=== PATIENT | female | born 1980 | race Caucasian/White ===

== ENCOUNTER 2020-02-08 13:29 | Observation (INO) | payer OTHER, SELFPAY ==
--- NOTE | ~2020-02-08 | US_ITS ---
EXAMINATION: US OB follow up EXAM DATE: 02/08/2020 14:12 INDICATION: Decreased movement. 2nd trimester. TECHNIQUE: Pelvic obstetrical transabdominal sonogram was performed by a technologist. There are mu ltiple grayscale and Doppler images available for interpretation. There are no earlier studies of th is gestation for comparison. FINDINGS: There is a 2nd trimester intrauterine gestation identified, without heart tones. Plac enta is posteriorly located. No retroplacental hemorrhage. IMPRESSION: demise. Reviewed, dictated and finalized at location A. IMPRESSION: demise.
[2020-02-08 13:20] VITALS: BP 160/79; PULSE 107; RESP 17; TEMP 36.7; O2SAT 100
--- NOTE | 2020-02-08 15:03 | PM.IMHP ---
H&P: HPI History of Present Illness Chief complaint: decreased movement Narrative: Greer Castellano is a 39 year old female multiparous female at 19 weeks gestation who presents with decreased movement. The patient has a history of 2 second-trimester demise. Patient stated that she does new that the baby had passed. She denies any nausea, vomiting, fever, chills. She denies any shortness of breath or chest pain. She denies any contractions, vaginal bleeding, loss of fluid. Review of Systems Constitutional: Constitutional: Reports no additional constitutional complaints, Denies fatigue, Denies headache(s), Denies lethargy and Denies weakness Eyes: Eyes: Reports no additional eye complaints, Denies blurry vision and Denies photophobia ENT: Reports as per HPI, Denies headache(s) and Denies neck pain Cardiovascular: Cardiovascular: Denies chest pain, Denies diaphoresis, Denies leg edema, Denies palpitations and Denies dyspnea Respiratory: Respiratory: Denies hemoptysis, Denies dyspnea and Denies wheezing Gastrointestinal: Gastrointestinal: Denies abdominal pain, Denies melena, Denies bloating, Denies hematochezia, Denies nausea and Denies vomiting Genitourinary: Genitourinary: Reports no additional female genitourinary complaints Musculoskeletal: Musculoskeletal: Denies joint swelling, Denies neck pain, Denies numbness and Denies stiffness Neurologic: Denies Abnormal speech present, Denies confusion, Denies headache(s), Denies numbness and Denies weakness Psychiatric: Psychiatric: Denies anxiety, Denies confusion, Denies depression, Denies homicidal ideation and Denies suicidal ideation Endocrine: Endocrine: Denies fatigue and Denies palpitations Allergic/Immunologic: Allergic/Immunologic: Denies wheezing [facility] Social History Social History Gender identity (if verbalized by the patient): Female Meds Home Medications and Allergies Allergies Allergy/AdvReac Type Severity Reaction Status Date / Time No Known Allergies Allergy Unverified 08/24/17 13:33 Vital Signs Vital Signs - 24 hr 02/08/20 13:20 Temperature 98.1 F Pulse Rate 107 H Respiratory Rate 17 Blood Pressure 160/79 H Pulse Oximetry 100 Exam Const: General: healthy appearing, comfortable and no acute distress; No confusion Orientation/consciousness: No confusion Eyes: Direct Ophthalmoscopy: No photophobia Resp: Auscultation: clear to auscultation bilaterally, no rales, no rhonchi and no wheezes Cardio: Rate: regular rate Heart sounds: no click, no murmurs and no rubs GI: Inspection: non-distended GI Palp: No abdominal tenderness Auscultation: normal bowel sounds Neuro: General: No confusion Speech: No Abnormal speech present Extrem: General: normal to inspection, no pedal edema and no calf tenderness Assessment and Plan Assessment and plan (1) demise before 20 weeks with retention of fetus: Code(s): O02.1 - Missed Status: Acute Assessment and Plan: This patient is a 39-year-old multiparous female at 19 weeks gestation with a demise. Patient's previous demise was delivered by a classical . The patient desires sterilization. She wants to be delivered again by delivery and have tubal ligation. We agreed to proceed with repeat and bilateral tubal ligation. She understands the risks, benefits, and alternatives. She has completed the informed consent process is ready to proceed. The surgery will be performed in 3 days.
--- NOTE | 2020-02-08 15:53 | PC.NURSE ---
Pt arrived per wheelchair from the ER at 1329. Pt was transferred to OB d/t c/o not feeling any movement, pt denies any bleeding or cramping. Pt states she had a demise last summer and one the year prior to that and this feels the same to her. I attempted to dopper heart tones for several minutes without success. Bryant AMADOR called at 1337 and was informed of why pt came in and that she is needed to come in and perform US. Bryant AMADOR arrived at 1345, she performed a bedside US and was unable to determine if there was a heart rate. Order received to have US tech come to perform bedside US. 1400 bedside US was performed and pt was informed by Bryant AMADOR that there is not a heart beat. 1402 Dr. Rg called and informed of pt's loss and that she is requesting to speak with him, he stated he is on his way in. 1406 bp 151/82 HR 100 temp 97.8. 1425- at bedside discussing with pt and her the plan of care. Pt states she wants to have a section since she had to have one last time and she wants a tubal ligation. 1445- remains at bedside discussing plan. Due to childcare issues today and inability to know if tubal ligation could be performed with pt's insurance, decision made by and pt for her to go home now and he will call her tomorrow with time and date of section. 1451-Pt discharged with SO and instructed to come in if she has any vaginal bleeding or cramping or develops a fever.
== END 2020-02-08 14:51 | disposition home or self-care (01) ==
LOC: ANHED 14:55 → ANHLDR 02-09 09:49
PROVIDERS: Admitting Provider Obstetrics & Gynecology; Visit Provider Obstetrics & Gynecology
DX: O02.1 Missed abortion (principal)
CPT/HCPCS: 76816; G0378; G0379

== ENCOUNTER 2020-02-11 07:15 | Inpatient (IN) | payer OTHER, SELFPAY ==
[2020-02-11] VITALS (39 sets, daily range): BP systolic 86–123; BP diastolic 27–89; PULSE 59–100; RESP 16–20; TEMP 36.1–36.7; O2SAT 96–100; BMI 30.9
--- NOTE | 2020-02-11 08:00 | P.PNAN_ITS ---
Anes - Initial Pre Proc Eval Procedure: Operation Date: 02/11/20 09:00 Proposed Procedures p Repeat Section, Tubal Ligation With Cautery - Anna Rg MD Date/Time: 02/11/20 08:00 Surgeon: Anna Rg MD Pre Op Diagnosis: C/Section Patient Data Age: 39 Gender: F Height: Weight: Last Vital Signs Pulse 85 02/11/20 07:40 BP 123/85 02/11/20 07:40 Allergies Allergy/AdvReac Type Severity Reaction Status Date / Time No Known Allergies Allergy Unverified 08/24/17 13:33 Patient hx anesthesia problems: none Family hx anesthesia problems: none [facility] Social History Social History Gender identity (if verbalized by the patient): Female Anes - Eval Final PreProcedure Day of Procedure 02/11/20 08:00 Patient weight: overweight Heart: regular rate and rhythm Lungs: clear to auscultation and normal air movement Airway: Mallampati scale class II Neurological: alert and oriented Last oral intake: >/= 8 hours ASA classification: II Emergent: no Anesthetic plan: proceed Anesthesia type and monitoring: regional spinal Informed Consent: The patient's anesthetic plan and its attendant risks and benefits were discussed with the patient/family/POA. Questions were solicited and answers provided to the satisfaction of the patient/family/POA.
[2020-02-11 08:23] LABS: Basophils Absolute Auto 0.1 K/mm3 (0.0-0.1); Basophils Percent Auto 0.5 % (0.2-1.2); Eosinophils Absolute Auto 0.3 K/mm3 (0-0.3); Eosinophils Percent Auto 2.5 % (0-4.4); Hematocrit 39.7 % (37.0-47.0); Hemoglobin 13.8 g/dL (12.0-15.0); Immature Granulocyte Absolute 0.31 K/mm3 (0.00-0.031); Immature Granulocyte Percent A 2.5 % (0-0.5); Lymphocytes Absolute Auto 1.78 K/mm3 (0.9-3.2); Lymphocytes Percent Auto 14.2 % (18.3-44.2); Mean Corpuscular HGB Conc 34.8 g/dl (32-36); Mean Corpuscular Hemoglobin 30.7 pg (26-34); Mean Corpuscular Volume 88.2 fl (80-100); Monocytes Percent Auto 7.8 % (2.6-8.5); Neutrophils Absolute Auto 9.1 K/mm3 (1.3-6.7); Neutrophils Percent Auto 72.5 % (45.5-73.1); Platelet Count Result 206 k/mm3 (150-375); Red Cell Distribution Width 14.4 % (11.5-14.5); White Blood Count 12.5 K/mm3 (4.5-10.0)
[2020-02-11] MEDS: LACTATED RINGERS 1,000 ML 999 ML IV CONT (08:32)
--- NOTE | 2020-02-11 08:44 | LDADM ---
This patient, Greer Castellano, was admitted to Labor/Delivery/Recovery 119 on 02/11/20 at 07:15. Plans for labor, pain management and were discussed with patient. Patient/family oriented to hospital policies and general routines including ID bracelet, bed and alarms, visiting hours, pain management, procedures, bathroom and other care routines, personal items, smoking policy, room service/diet and guest tray routines, infant security routines, and visiting hours. Patient/Family are encouraged to report perceived risks to care and to ask questions if they do not understand what they are told or what they should do. See OBIX for further documentation.
--- NOTE | 2020-02-11 09:07 | PM.IMHP ---
H&P: HPI History of Present Illness Chief complaint: C/Section Narrative: Greer Castellano is a 39 year old female She is multiparous and has a demise currently at 19 weeks gestation. This is her 3rd consecutive demise at 19-21 weeks. Previously she had a delivery at her request. She has unwanted fertility at this time also. We have agreed to proceed with repeat delivery and bilateral tubal ligation. She denies any problems. She has no complaints. She denies any chest pain, shortness of breath, nausea vomiting, fever, chills. She denies any contractions or vaginal bleeding. Review of Systems Constitutional: Constitutional: Reports no additional constitutional complaints, Denies fatigue, Denies headache(s), Denies lethargy and Denies weakness Eyes: Eyes: Reports no additional eye complaints, Denies blurry vision and Denies photophobia ENT: Reports as per HPI, Denies headache(s) and Denies neck pain Cardiovascular: Cardiovascular: Denies chest pain, Denies diaphoresis, Denies leg edema, Denies palpitations and Denies dyspnea Respiratory: Respiratory: Denies hemoptysis, Denies dyspnea and Denies wheezing Gastrointestinal: Gastrointestinal: Denies abdominal pain, Denies melena, Denies bloating, Denies hematochezia, Denies nausea and Denies vomiting Genitourinary: Genitourinary: Reports no additional female genitourinary complaints Musculoskeletal: Musculoskeletal: Denies joint swelling, Denies neck pain, Denies numbness and Denies stiffness Neurologic: Denies Abnormal speech present, Denies confusion, Denies headache(s), Denies numbness and Denies weakness Psychiatric: Psychiatric: Denies anxiety, Denies confusion, Denies depression, Denies homicidal ideation and Denies suicidal ideation Endocrine: Endocrine: Denies fatigue and Denies palpitations Allergic/Immunologic: Allergic/Immunologic: Denies wheezing [facility] Family History Family History (Updated 02/11/20 @ 08:48 by Lakisha Montano RN) Mother Diabetes mellitus Hypertension Grandparent Diabetes mellitus Father Diabetes mellitus Social History Social History (Updated 02/11/20 @ 08:50 by Lakisha Montano RN) Smoking status: Former smoker Tobacco type: cigarettes Second hand tobacco smoke exposure: Yes Alcohol intake: never Substance use: never Living arrangements: with family Gender identity (if verbalized by the patient): Female Sexual Orientation (if Verbalized by the Patient): Straight or Heterosexual Spiritual care concerns: No Agree to blood products: Yes Meds Home Medications and Allergies Allergies Allergy/AdvReac Type Severity Reaction Status Date / Time No Known Allergies Allergy Unverified 08/24/17 13:33 Vital Signs Vital Signs - 24 hr 02/11/20 07:40 Pulse Rate 85 Blood Pressure 123/85 Exam Const: General: healthy appearing, comfortable and no acute distress; No confusion Orientation/consciousness: No confusion Eyes: Direct Ophthalmoscopy: No photophobia Resp: Auscultation: clear to auscultation bilaterally, no rales, no rhonchi and no wheezes Cardio: Rate: regular rate Heart sounds: no click, no murmurs and no rubs GI: Inspection: non-distended GI Palp: No abdominal tenderness Auscultation: normal bowel sounds Neuro: General: No confusion Speech: No Abnormal speech present Extrem: General: normal to inspection, no pedal edema and no calf tenderness H&P: Results Labs Labs: Short CBC 02/11/20 Range/Units 08:16 WBC 12.5 H (4.5-10.0) K/mm3 Hgb 13.8 (12.0-15.0) g/dL Hct 39.7 (37.0-47.0) % Plt Count 206 (150-375) k/mm3 Assessment and Plan Assessment and plan (1) demise before 20 weeks with retention of fetus: Code(s): O02.1 - Missed Status: Acute (2) Unwanted fertility: Code(s): Z30.09 - Encounter for other general counseling and advice on contraception Status: Acute Assessmen
[2020-02-11 09:15] LABS: HIV 1/2 Ab P24 Ag Result Negative (Negative)
[2020-02-11 10:09] LABS: Hepatitis B Surface Antigen Negative (Negative)
[2020-02-11 10:24] LABS: Rapid Plasma Reagin Non-Reactive (NonReactive)
--- NOTE | 2020-02-11 10:57 | P.OP_ITS ---
Procedure Note - Detailed Date of procedure: 02/11/20 Pre-op diagnosis: C/Section Unwanted fertility, Detal Demise, Previous Classical Uterine Incision Post-op diagnosis: same Procedure performed: Repeat low-transverse delivery, tubal ligation Description of procedure: The patient was taken the operating room. She was prepped and draped in the dorsal supine position with leftward tilt after emelina ction of spinal anesthetic. When anesthesia was found to be adequate a low- transverse skin incision was made and carried down to the level the fascia with the knife. The fascial incision was made at the midline with a scalpel. The fascial incision was extended laterally with Murphy scissors. The fascia was tented upward superior and inferior with Bhavesh clamps. The rectus muscles were dissected off bluntly. The rectus muscles at the midline. The preperitoneal fat was dissected bluntly at the superior aspect of the separate the rectus muscles. The peritoneal cavity was entered bluntly in the same area. The peritoneal incision was extended superior and inferior with good position of bladder. Bladder blade was inserted. A classical incision was made on the uterus with the scalpel. It was carried down the level of the amniotic cavity with a knife. The amniotic cavity bluntly. The uterine incision was made laterally with blunt traction. The infant was delivered. The cord was clamped and cut. The infant was handed off to waiting pediatric staff. Cord bloods were obtained. The placenta was removed manually. The uterus was exteriorized. Uterus cleared of all clots and debris. Uterus closed in 0 Vicryl in a running locked fashion. This suture encompassed the Myometrium and endometrium. An imbricating layer of 0 Vicryl was also placed on the to bolster the closure encompasing some myometrium and the serosa. Fallopian tube was grasped in the ampullary region with a Soraya. It was raised away from the accompanying vein. A window was created in the broad ligament in this area of the tube. 0 Vicryl was used to ligate the proximal distal ends of the skeletonize region of the tube. The segment of the tube was resected with scissors. The cut surfaces were cauterized. On the contralateral side the procedure was performed identically. The uterus was returned to the abdomen. The gutters were cleared of all clots and debris. The fascia was closed 0 Vicryl in a running fashion. Subcutaneous tissue was irrigated and bleeding areas were cauterized. The skin was closed with subcuticular absorbable phil. The incision was covered with derma parry. The patient tolerated the procedure well. She was taken recovery room stable condition. Sponge, lap, needle counts were correct x2. Anesthesia: spinal Surgeon: Anna Rg MD Estimated blood loss (mL): 210 Drains: No Packing: No Pathology: none sent Complications: No immediate complications Condition: stable Disposition: floor Findings: Normal maternal anatomy. 19 wk size , dark amniotic fuid, demise.
[2020-02-11] MEDS: MEPERIDINE HCL INJ 50 MG/ML AMPUL 12 MG IV PUSH (13:00)
[2020-02-11] MEDS: ONDANSETRON INJ 4 MG/2 ML VIAL IV PUSH ×2 (13:00→19:56)
[2020-02-11] MEDS: KETOROLAC 30 MG/ML VIAL (*BKC) IV PUSH ×2 (13:40→19:56)
--- NOTE | 2020-02-11 14:24 | SUR.PHASEI ---
PATIENT RECOVERED IN 119 AND ASSESSMENT STABLE THROUGHOUT. BONDED WITH BABY AND PICTURES DONE. MOVED TO RM 111
[2020-02-11] MEDS: LORATADINE 10 MG TABLET PO (16:15)
[2020-02-11] MEDS: DEXTROSE 5%/0.45% SOD CHL 1,000 ML 125 ML IV CONT (16:29)
[2020-02-11 19:07] LABS: Glucose Point of Care 92 (65-105)
[2020-02-12] VITALS (11 sets, daily range): BP systolic 111–151; BP diastolic 50–95; PULSE 72–99; RESP 16–18; TEMP 36.3–37.3
[2020-02-12] MEDS: KCL 20 MEQ/D5/0.45% SOD CHL 1,000 ML 125 ML IV CONT (00:32)
--- NOTE | 2020-02-12 08:06 | PM.OBPNVD ---
OB - PN: Subj Subjective Date/time seen: 02/12/20 08:06 Patient comments: no complaints, pain well controlled, tolerating diet and flatus present OB - PN: Obj Data Labs CBC & Chem 7: 02/11/20 08:16 Labs: Laboratory Results - last 24 hr 02/11/20 02/11/20 02/11/20 08:16 08:16 08:16 WBC 12.5 H RBC 4.50 Hgb 13.8 Hct 39.7 MCV 88.2 MCH 30.7 MCHC 34.8 RDW 14.4 Plt Count 206 MPV 11.0 H Immature Gran % (Auto) 2.5 H Neut % (Auto) 72.5 Lymph % (Auto) 14.2 L Posey % (Auto) 7.8 Eos % (Auto) 2.5 Baso % (Auto) 0.5 Lymph # (Auto) 1.78 Posey # (Auto) 1.0 H Eos # (Auto) 0.3 Baso # (Auto) 0.1 Abs Immat Gran (auto) 0.31 H Absolute Neuts (auto) 9.1 H Absolute Nucleated RBC 0.0 Nucleated RBC % 0.0 POC Capillary Glucose RPR Non-reactive Hep Bs Antigen HIV 1&2 Ab/P24 Ag 4thGn Rubella IgG Antibody 48.0 Blood Type Antibody Screen 02/11/20 02/11/20 02/11/20 08:16 08:16 08:16 WBC RBC Hgb Hct MCV MCH MCHC RDW Plt Count MPV Immature Gran % (Auto) Neut % (Auto) Lymph % (Auto) Posey % (Auto) Eos % (Auto) Baso % (Auto) Lymph # (Auto) Posey # (Auto) Eos # (Auto) Baso # (Auto) Abs Immat Gran (auto) Absolute Neuts (auto) Absolute Nucleated RBC Nucleated RBC % POC Capillary Glucose RPR Hep Bs Antigen Negative HIV 1&2 Ab/P24 Ag 4thGn Negative Rubella IgG Antibody Blood Type A Positive Antibody Screen Negative 02/11/20 19:00 WBC RBC Hgb Hct MCV MCH MCHC RDW Plt Count MPV Immature Gran % (Auto) Neut % (Auto) Lymph % (Auto) Posey % (Auto) Eos % (Auto) Baso % (Auto) Lymph # (Auto) Posey # (Auto) Eos # (Auto) Baso # (Auto) Abs Immat Gran (auto) Absolute Neuts (auto) Absolute Nucleated RBC Nucleated RBC % POC Capillary Glucose 92 RPR Hep Bs Antigen HIV 1&2 Ab/P24 Ag 4thGn Rubella IgG Antibody Blood Type Antibody Screen OB - PN A/P Plan day: 1 Comments: Post Op LTCS - no problems, routine recovery Time Spent With Patient Time: Total time spent is greater than 50% in coordination of care (as documented) at patient's floor/unit and/or counseling patient: Exam Const: General: cooperative, healthy appearing, comfortable and no acute distress Resp: Auscultation: no crackles, no rales, no rhonchi and no wheezes Cardio: Rhythm: regular rhythm Heart sounds: no click and no murmurs GI: Inspection: non-distended Auscultation: normal bowel sounds Extrem: General: normal to inspection, no pedal edema and no calf tenderness
[2020-02-12] MEDS: KETOROLAC 30 MG/ML VIAL (*BKC) IV PUSH (08:43)
[2020-02-12] MEDS: MULTIVIT/MIN/PREN/FOL AC/IRON TABLET 1 TAB PO (09:04)
[2020-02-12] MEDS: SIMETHICONE 80 MG TAB.CHEW PO (09:04)
[2020-02-12] MEDS: DOCUSATE SODIUM 100 MG CAPSULE PO ×2 (09:04→16:30)
--- NOTE | 2020-02-12 14:20 | WPDANLDPN2 ---
Anes-Prog Note L&D Date/Time: 02/12/20 14:20 Comfortable throughout: section Neuraxial method: spinal Epidural/Spinal procedure site: clean & non-tender Neuro status: Neuro function grossly intact. Cardiovascular status: normal Respiratory status: normal Airway patency: baseline Mental status: baseline Post-Op hydration status: normal Vital Signs: Last Vital Signs Temp 98.1 F 02/12/20 08:30 Pulse 74 02/12/20 08:01 Resp 16 02/12/20 08:30 BP 114/66 02/12/20 08:01 Pulse Ox 100 02/11/20 17:00 I/O: Intake & Output 02/11/20 02/12/20 02/12/20 23:59 07:59 15:59 Intake Total 1200 240 Output Total 450 2220 400 [facility] -450 -1025 -160 Post-procedural complaints: none Patient feedback: Patient satisfied with anesthetic care.
--- NOTE | 2020-02-12 14:20 | WPDANLDNPN2 ---
Anes-Prog Note L&D-Neuraxial Date/Time: 02/12/20 14:20 Neuraxial medications: intrathecal PF morphine Opiod-related complaints: pruritis moderate, treatment effective Patient feedback: Patient satisfied with post-operative pain management.
--- NOTE | 2020-02-12 16:20 | PC.NURSE ---
1615--abdominal binder given to pt., pt. verbalizes great relief from abdominal pain with binder in place.
[2020-02-12] MEDS: IBUPROFEN 600 MG TABLET PO (16:30)
--- NOTE | 2020-02-13 00:01 | PC.NURSE ---
Air conditioner in back hallway not working. Offered patient a room on post . She requested to go home. Called Dr Rg and obtained order for discharge. Discharge instructions reviewed with patient. Patient understands to call MD office in the morning for pain medication. Patient denies any questions or concerns about self care at home.
--- NOTE | 2020-03-09 07:36 | PM.OBDSVD ---
DS: Admitting Diagnosis Admitting Diagnosis Admitting Diagnosis: Missed DS: Discharge Diagnosis Discharge Diagnosis (1) Unwanted fertility: Code(s): Z30.09 - Encounter for other general counseling and advice on contraception Status: Acute (2) demise before 20 weeks with retention of fetus: Code(s): O02.1 - Missed Status: Acute OB - DS: Summary OB Procedures : None OB Procedures Intrapartum: and Tubal ligation OB Procedures: : None Peripartum Data Infant Delivery Method: Section Procedures: Procedures Operation Date: 02/11/20 09:00 Actual Procedures Side Surgeon p Section Anna Rg MD complications: none Status at Discharge Functional status at discharge: independent ambulation Time Spent with Patient Time attestation: Total time spent providing and/or coordinating discharge services: Time spent: Less than 30 minutes DS: Data Data Completed and Pending Completed studies during hospitalization: Pending at discharge 02/11/20 10:20 Surgical [PTH] Routine Surgical [PTH] Routine Discharge Plan Discharge Attending physician on discharge: Anna Rg Consulting providers: Kevin Kumar Discharging Clinician: Anna Rg Patient Disposition: Home, Self-Care Activity: pelvic rest Diet: as tolerated Discharge Instructions: Follow-Up: Call your Provider's office for an appointment to be seen in: call office for follow up appointment Return to [facility] for a follow-up visit: Appointment Date/Time: at What to expect at your follow-up visit: Call [phone] if you are unable to keep your appointment time. EPISIOTOMY/PERINEAL CARE: * Until bleeding stops, use your soila bottle after urinating * Change your pad frequently throughout the day * You may take sitz baths several times a day (fill your bathtub with warm water and soak for 20 minutes.) Do NOT bathe in the water * No tub baths until seen by your physician - You may shower BLEEDING: * Each individual will experience vaginal bleeding, but it will vary with each situation and individual woman. * Vaginal bleeding will go thru cycles-from bright red, to pinkish to a white, creamy discharge. This is considered normal. You may also experience a brownish discharge which is also normal. DIET AND NUTRITION: * Eat at least 3 regular, well-balanced meals per day: include all 4 food groups daily. * You may prefer 6 small meals. * Drink 6-8 glasses of water or non-caffeinated beverages per day. * Loss of appetite is common with loss. We encourage you to try to eat; this will help with both your physical and emotional health. ACTIVITY: * Rest as much as possible during the day. * Do not exercise or lift anything heavier than 10 pounds (such as laundry or other children.) * Avoid stairs or driving as much as possible, especially if you are taking pain medication. * Do not put anything into the vagina. No douching, tampons, or sexual activity until seen and released by your physician. * Listen to your body, and do not do what is uncomfortable or painful. EMOTIONAL HEALTH: * This is a very difficult and sad time for you and your family, friends, and other children. It may be helpful to refer to the booklets on loss that you received. * It is okay to be sad and to cry. Denial, anger, and guilt are also normal stages that you and your family may go thru during this time. Each person reaches these stages at their own pace. * Keep the lines of communication open between family and friends, and ask for help if needed. NOTIFY PHYSICIAN IF YOU HAVE ANY QUESTIONS OR IF ANY OF THE FOLLOWING SYMPTOMS OCCUR: * If your episiotomy or incision becomes red, swollen, or more painful than what you have experienced in the hospital. * If your vaginal bleeding becomes foul smelling. * If
== END 2020-02-12 23:55 | disposition home or self-care (01) | DRG 540 ==
LOC: ANHLDR 07:26 → ANHOBPP 02-12 08:32
PROVIDERS: Admitting Provider Obstetrics & Gynecology; Visit Provider Obstetrics & Gynecology
PROC: 10D00Z1 Extraction of Products of Conception, Low, Open Approach (ICD-10-PCS; CPT 59514; principal; 2020-02-11 09:00)
DX: O02.1 Missed abortion (principal); Z3A.19 19 weeks gestation of pregnancy; O34.212 Maternal care for vertical scar from previous cesarean delivery; Z30.2 Encounter for sterilization; O99.73 Diseases of the skin and subcutaneous tissue complicating the puerperium; L29.9 Pruritus, unspecified
CPT/HCPCS: 36415; 85025; 86592; 86703; 86762; 86850; 86900; 86901; 87340; 88302; 88307; A9270; G0432; J0131; J1200; J1885; J2175; J2250; J2274; J2405; J2590; J2704; J3480; J7120

== ENCOUNTER 2020-10-26 11:07 | Emergency (ER) | payer OTHER, SELFPAY ==
[2020-10-26 11:16] VITALS: BP 150/95; PULSE 94; RESP 17; TEMP 36.4; O2SAT 100
--- NOTE | 2020-10-26 12:06 | ED.GENADULT ---
HPI - General Adult General Chief complaint: Dental/Oral <Xiang Brandt PA-C - Last Filed: 10/26/20 12:16> Stated complaint: tooth pain <Xiang Barndt PA-C - Last Filed: 10/26/20 12:16> Time Seen by Provider: 10/26/20 11:18 <Xiang Brandt PA-C - Last Filed: 10/26/20 12:16> Source: patient <Xiang Brandt PA-C - Last Filed: 10/26/20 12:16> Mode of arrival: ambulatory <FLOYD Leung Last Filed: 10/26/20 12:16> Limitations: no limitations <Xiang Brandt PA-C - Last Filed: 10/26/20 12:16> History of Present Illness HPI narrative: Patient presents for right lower dental pain that has been increasing since having a tooth pulled on Sunday. Patient states that she called the dentist office but they state that they cannot get her in for a few days. She states that she is on a waiting list to be called in for appointment opens up sooner. Patient denies fever, chills, nausea, vomiting, diarrhea. Patient states that she is on amoxicillin but in the past has had better results with the Augmentin. Patient states that she has been rinsing of the area to avoid any substances it appears to have well. She denies abnormal purulent drainage. She denies smoking or drinking through a straw. <Xiang Brandt PA-C - Last Filed: 10/26/20 12:16> Related Data Home medications: Home Medications Medication Instructions Recorded Confirmed amoxicillin 10/26/20 10/26/20 ibuprofen 10/26/20 <Xiang Brandt PA-C - Last Filed: 10/26/20 12:16> Allergies/adverse reactions: Allergies Allergy/AdvReac Type Severity Reaction Status Date / Time No Known Allergies Allergy Unverified 08/24/17 13:33 <FLOYD Leung Last Filed: 10/26/20 12:16> Review of Systems Review of Systems: Narrative: CONSTITUTIONAL: Denies fever, chills, or sweats. EYES: Denies visual changes, redness, or discharge. ENT: Reports dental pain denies rhinorrhea, congestion, sore throat, or otalgia. CARDIOVASCULAR: Denies chest pain, palpitations, or edema. RESPIRATORY: Denies cough or dyspnea. GASTROINTESTINAL: Denies abdominal pain, nausea, vomiting, or diarrhea. GENITOURINARY: Denies dysuria or hematuria. SKIN: Denies rash or itching. MUSCULOSKELETAL: Denies back pain, joint pain, or myalgia. NEUROLOGIC: Denies headache, numbness, dizziness, or weakness. PSYCHIATRIC: Denies anxiety or depression. <Xiang Brandt PA-C - Last Filed: 10/26/20 12:16> [facility] Family History Family History: Family History (Updated 02/11/20 @ 08:48 by Lakisha Montano, JEANNINE) Mother Diabetes mellitus Hypertension Grandparent Diabetes mellitus Father Diabetes mellitus <Xiang Brandt PA-C - Last Filed: 10/26/20 12:16> Social History Social History: Social History (Updated 02/11/20 @ 08:50 by Lakisha Montano RN) Smoking status: Former smoker Tobacco type: cigarettes Second hand tobacco smoke exposure: Yes Alcohol intake: never Substance use: never Gender identity (if verbalized by the patient): Female Spiritual care concerns: No Agree to blood products: Yes <Xiang Brandt PA-C - Last Filed: 10/26/20 12:16> Exam Narrative: Exam Narrative: GENERAL: Well-appearing, well-nourished. HEAD: Normocephalic, atraumatic. EYES: PERRLA and EOMI. ENT: Nares clear, no rhinorrhea or epistaxis. Mucous membranes moist. Area in lower right jaw with what appears to be well appearing gum area. Minimal swelling or erythema. No discharge appreciated. Oropharynx without tonsillar hypertrophy exudate or other lesions. Bilateral TMs pearly taylor nonbulging NECK: Supple. No adenopathy or masses. No vertebral tenderness or loss of ROM. CHEST: Clear to auscultation. No respiratory distress. No wheezes rales or rhonchi HEART: Regular rate and rhythm. Normal peripheral pulses. EXTREMITIES: No acute changes in ROM. No edema. SKIN: Warm, dry, no rash. NEURO: No focal deficits. Alert and oriented x3.
== END 2020-10-26 12:22 | disposition home or self-care (01) ==
PROVIDERS: Emergency Provider General Practice
DX: K04.7 Periapical abscess without sinus (principal); Z87.891 Personal history of nicotine dependence
CPT/HCPCS: 99283

== ENCOUNTER 2022-02-10 12:57 | Outpatient (CLI) | payer OTHER, SELFPAY ==
--- NOTE | ~2022-02-10 | MMUS_ITS ---
EXAMINATION: MM diagnostic [place] BI w zahira, US breast BI complete HISTORY: Palpable breast lumps TECHNIQUE: Additional 3-D tomosynthesis images of the breasts were performed and synthetic 2-D images were generated. CAD analysis was submitted and interpreted. High resolution bilateral complete breas t ultrasound was performed. COMPARISON: None BREAST PARENCHYMAL COMPOSITION: Breast composed of scattered areas of fibroglandular density FINDINGS: MAMMOGRAPHIC FINDINGS: There are no suspicious masses, calcifications or architectural distortion in either breast to sugges t malignancy. ULTRASOUND: Complete bilateral US of all 4 quadrants of the breasts and retroareolar region was reviewed. There a re normal bilateral axillary and left intramammary lymph nodes. No suspicious masses to suggest geremias gaming. IMPRESSION: 1. No evidence for malignancy in either breast. 2. Routine yearly screening mammogram and regular clinical breast examination are recommended. BI-RADS Category 1: Negative Reviewed, dictated and finalized at location A. IMPRESSION: 1. No evidence for malignancy in either breast. 2. Routine yearly screening mammogram and regular clinical breast examination a re recommended. BI-RADS Category 1: Negative
== END 2022-02-10 12:58 | disposition home or self-care (01) ==
LOC: ANHIMG 12:59
PROVIDERS: Visit Provider Nurse Practitioner Obstetrics & Gynecology
DX: N63.20 Unspecified lump in the left breast, unspecified quadrant (principal); Z80.3 Family history of malignant neoplasm of breast; N64.4 Mastodynia
CPT/HCPCS: 76641; 77062; 77066; G0279

== ENCOUNTER 2023-12-26 00:55 | Day surgery (SDC) | payer OTHER, SELFPAY ==
[2023-12-20 09:53] VITALS: BMI 28.3
--- NOTE | 2023-12-20 10:01 | PC.NURSE ---
Report to the Outpatient Waiting Room, entrance under the green pavilion located off [facility], at time _0600_ on date _[id number]_. Planned Procedure Time: _0730_. Time changes happen often and if your time is changed the preop area will call you the afternoon before. - You and your visitor will be asked to self-screen and do not enter if you have any COVID symptoms. - A mask is optional within the hospital at this time. Patients may have clear liquids (water, carbonated beverages, clear teas, apple juice) until 3 hours prior to surgery with a maximum of 20 ounces. - No food from midnight until time of surgery Take the following medications with a SIP of water the morning of surgery: ___None DO NOT STOP ANY OF YOUR OTHER PRESCRIPTION MEDICATIONS PRIOR TO SURGERY ?EXCEPT THE FOLLOWING Medications to discontinue per physician ____Prenatal vitamin and ferrous sulfate Date to take last tunm___[id number] Please no make-up, nail uzbek, hairspray, perfume, deodorant, or body powder the day of surgery. No jewelry (including any body piercings) or valuables the day of surgery, leave them at home. Please take a shower or bath the night before, or the morning of, surgery with an antibacterial soap. Wear comfortable, loose fitting clothing. - Jewelry must be removed prior to entering the operating room. Rings and piercings that are not removed may be cut off. - The hospital will not accept responsibility for valuables. - Please leave all valuables, including medications, at home the day of surgery. If you are going home after surgery, a licensed batch mixing truck driver must drive you home. - NO public transportation without another adult if you receive anesthesia. - We recommend that an adult stay with you for 24 hours following discharge. - We also recommend that you do not drive, make important decision, drink alcoholic beverages, or take any drugs that were not prescribed by your health care provider for at least 24 hours after your discharge time. Follow any additional instructions given to you from your surgeon. If you or anyone in your household have experienced Covid symptoms in the past week, please notify your surgeon or the nurse liaison at the phone number below for possible testing. Telephone instructions given to __Greer__and asked if any additional questions and then verbalized understanding. Patient advised to call surgeon office or pre surgery nurse liaison [phone] if any additional questions.
[2023-12-26 06:08] VITALS: BP 136/74; PULSE 64; RESP 16; TEMP 36.7; O2SAT 100
--- NOTE | 2023-12-26 06:52 | WPDANESEPPF ---
Anes - Initial Pre Proc Eval Procedure: Operation Date: 12/26/23 07:30 Proposed Procedures p Hysteroscopy, Santa Endometrial Ablation - Gato Rg MD Date/Time: 12/26/23 06:52 Surgeon: Gato Rg MD Pre Op Diagnosis: menorrhagia Patient Data Age: 43 Gender: F Height: 1.68 m Weight: 76.2 kg Last Vital Signs Temp 98.0 F 12/26/23 06:08 Pulse 64 12/26/23 06:08 Resp 16 12/26/23 06:08 BP 136/74 12/26/23 06:08 Pulse Ox 100 12/26/23 06:08 O2 Del Method Room Air 12/26/23 06:08 Allergies Allergy/AdvReac Type Severity Reaction Status Date / Time No Known Allergies Allergy Verified 12/26/23 06:11 Home Medications Medication Instructions Recorded Confirmed Type ferrous sulfate 325 mg (65 mg 325 mg PO DAILY 11/21/23 12/26/23 History iron) tablet (iron) [id number] 1 mg 1 tablet PO DAILY 11/21/23 12/26/23 History tablet Patient hx anesthesia problems: none Family hx anesthesia problems: none Results Review: All pre-operative results and documents have been reviewed as part of the pre-operative evaluation. [facility] Family History Family History Mother Diabetes mellitus Hypertension Grandparent Diabetes mellitus Father Diabetes mellitus Social History Social History Smoking packs per day: 1 Smoking cigarettes per day: 20.0 Years smoked: 10 Smoking pack-years: 10.00 Smoking status: Former smoker Tobacco type: cigarettes Second hand tobacco smoke exposure: Yes Smoking end date: 12/20/07 Alcohol intake: never Substance use: never Living arrangements: with family Gender identity (if verbalized by the patient): Female Sexual Orientation (if Verbalized by the Patient): Straight or Heterosexual Spiritual care concerns: No Agree to blood products: Yes Anes - Eval Final PreProcedure Day of Procedure 12/26/23 06:52 Patient weight: normal Heart: regular rate and rhythm Lungs: clear to auscultation Airway: Mallampati scale class 1 and class II Neurological: alert and oriented Last oral intake: >/= 8 hours ASA classification: II Emergent: no Anesthetic plan: proceed Anesthesia type and monitoring: general GIVS and standard monitoring Results Review: All pre-operative results and documents have been reviewed as part of the pre-operative evaluation. Ex smoker, quit approx 2007. Informed Consent: The patient's anesthetic plan and its attendant risks and benefits were discussed with the patient/family/POA. Questions were solicited and answers provided to the satisfaction of the patient/family/POA.
[2023-12-26] MEDS: ACETAMINOPHEN 500 MG TABLET 1000 MG PO (06:56)
[2023-12-26 07:21] LABS: Hematocrit 40.5 % (37.0-47.0); Hemoglobin 13.4 g/dL (12.0-15.0)
--- NOTE | 2023-12-26 07:22 | WPDHPUPDATE1 ---
History and Physical Update Update Date/Time: 12/26/23 07:22 History and Physical has been reviewed, including an updated exam of the patient. There are NO changes in the patient's condition. Risks, benefits, and alternatives have been discussed and questions answered. Patient agrees to proceed with procedure.
--- NOTE | 2023-12-26 07:22 | PM.IMHP ---
H&P: HPI History of Present Illness Date/Time: 12/26/23 07:22 Chief Complaint: Heavy vaginal bleeding Narrative: this patient is a 43y/o with severe menorrhagia. We have agreed to perform endometrial ablation. She understands the procedure. Has been explained her in detail. She understands risks. She understands that injuries may occur that result in hospitalization, more surgery, and severe illness. She understands risk of hemorrhage and infection. She denies any nausea, vomiting, fever, chills. She denies any chest pain shortness of breath. Review of Systems Review of Systems: All systems reviewed & are unremarkable except as noted in HPI and below Constitutional: Constitutional: Denies chills, Denies fatigue, Denies fever(s) and Denies weakness Eyes: Eyes: Denies blurry vision, Denies change in vision, Denies loss of peripheral vision, Denies loss of vision, Denies other visual disturbances and Denies eye pain ENT: Denies vertigo, Denies dizziness, Denies hearing loss, Denies mouth pain, Denies nasal obstruction, Denies neck mass and Denies neck pain Cardiovascular: Cardiovascular: Denies chest pain, Denies diaphoresis, Denies syncope, Denies leg edema and Denies dyspnea Respiratory: Respiratory: Denies chest congestion, Denies cough, Denies hemoptysis, Denies dyspnea and Denies wheezing Gastrointestinal: Gastrointestinal: Denies abdominal pain, Denies constipation, Denies diarrhea, Denies nausea and Denies vomiting Genitourinary: Genitourinary: Denies hematuria, Denies change in libido, Denies nocturia, Denies genital lesions, Denies flank pain and Denies urinary urgency Musculoskeletal: Musculoskeletal: Denies abnormal gait, Denies back pain, Denies myalgias, Denies arthralgias, Denies joint swelling, Denies muscle weakness and Denies neck pain Integumentary/Breasts: Skin/Breast: Denies swelling, Denies breast pain, Denies breast mass, Denies dry skin, Denies nipple discharge, Denies unusual bruising and Denies jaundice Neurologic: Denies Neuro-related abnormal movements, Denies Abnormal speech present, Denies abnormal gait, Denies behavioral changes, Denies confusion, Denies vertigo, Denies dizziness, Denies syncope, Denies loss of vision, Denies memory loss, Denies convulsions and Denies weakness Psychiatric: Psychiatric: Denies abnormal sleep pattern, Denies behavioral changes, Denies change in libido, Denies confusion, Denies depression, Denies anhedonia and Denies memory loss Endocrine: Endocrine: Reports no additional endocrine complaints, Denies change in libido and Denies fatigue Hematologic/Lymphatic: Hematologic/Lymphatic: Reports no additional hematologic/lymphatic complaints Allergic/Immunologic: Allergic/Immunologic: Reports no additional allergic/immunologic complaints and Denies wheezing [facility] Family History Family History Mother Diabetes mellitus Hypertension Grandparent Diabetes mellitus Father Diabetes mellitus Social History Social History Smoking packs per day: 1 Smoking cigarettes per day: 20.0 Years smoked: 10 Smoking pack-years: 10.00 Smoking status: Former smoker Tobacco type: cigarettes Second hand tobacco smoke exposure: Yes Smoking end date: 12/20/07 Alcohol intake: never Substance use: never Living arrangements: with family Gender identity (if verbalized by the patient): Female Sexual Orientation (if Verbalized by the Patient): Straight or Heterosexual Spiritual care concerns: No Agree to blood products: Yes Meds Home Medications and Allergies Home Medications Medication Instructions Recorded Confirmed Type ferrous sulfate 325 mg (65 mg 325 mg PO DAILY 11/21/23 12/26/23 History iron) tablet (iron) [id number] 1 mg 1 tablet PO DAILY 11/21/23 12/26/23 History tablet Allergies Allergy/AdvReac
[2023-12-26] MEDS: LACTATED RINGERS 1,000 ML 30 ML IV CONT (07:33)
[2023-12-26] MEDS: LIDOCAINE HCL 1% LOCAL INJ 20 ML VIAL 10 ML INFILTRATE (07:57)
[2023-12-26 08:09] VITALS: BP 110/66; PULSE 53; RESP 12; O2SAT 100
[2023-12-26 08:35] VITALS: BP 146/88; PULSE 57; RESP 12; O2SAT 100
[2023-12-26] MEDS: oxyCODONE HCL (*CRX) 5 MG TAB IR PO (08:48)
--- NOTE | 2023-12-26 08:55 | W.PM.PROC2 ---
Procedure Note - Detailed Date of Procedure 12/26/23 Pre-op Diagnosis menorrhagia Post-op Diagnosis Same Procedure Performed endometrial ablation with hysteroscopy d&c Surgeon Gato Rg MD Anesthesia MAC Indications Severe menorrhagia Findings Normal vulva vagina and cervix. Normal endometrium. Description of Procedure The patient was taken to the operating room. She was prepped and draped in the dorsal lithotomy position after induction of mac anesthesia. A speculum was placed in the vagina. Cervix grasped with a tenaculum. The cervix was dilated to about 1 cm. The hysteroscope was inserted. The above findings were noted. Endometrial curettage was performed with a medium-size curette. All surfaces of the endometrium were affected by the curettage. The specimens were collected and sent to pathology. Measurements were taken of the uterus and cervix. The uterine length was then entered into the hand piece of the Santa device. The device was inserted into the intrauterine cavity. The array of the device was expanded. The balloon cuff was inflated. A good seal was achieved. The energy and safety cycles were initiated and completed. The array was collapsed and the instrument was withdrawn after deflating the balloon cuff. Hysteroscope was reinserted. Above findings were noted. The hysteroscope was removed. The patient tolerated the procedure well. The speculum and tenaculum were removed. She was taken to recovery in stable condition. Sponge lap and needle counts were correct x2. Estimated Blood Loss 15 Pathology Yes Complications No immediate complications Condition Stable Disposition Same day
[2023-12-26 09:05] VITALS: BP 152/87; PULSE 50; RESP 12
== END 2023-12-26 09:20 | disposition home or self-care (01) ==
PROVIDERS: Anesthesiology; Visit Provider Obstetrics & Gynecology
PROC: 0U5B8ZZ Destruction of Endometrium, Via Natural or Artificial Opening Endoscopic (ICD-10-PCS; CPT 58563; principal; 2023-12-26 07:30)
DX: N92.0 Excessive and frequent menstruation with regular cycle (principal); N85.8 Other specified noninflammatory disorders of uterus; Z87.891 Personal history of nicotine dependence
CPT/HCPCS: 58563; 36415; 85014; 85018; 88305; A9270; J1100; J2250; J2405; J2704; J3010; J7120

== ENCOUNTER 2024-03-18 14:26 | Outpatient (CLI) | payer OTHER, SELFPAY ==
--- NOTE | ~2024-03-18 | MM_ITS ---
EXAMINATION: MM screening [place] BI w zahira HISTORY: Screening TECHNIQUE: Craniocaudal and mediolateral oblique 3-D tomosynthesis images were obtained and synthetic 2-D images were generated. CAD analysis was submitted and interpreted. COMPARISON: 02/10/2022 BREAST PARENCHYMAL COMPOSITION: Not dense: There are scattered areas of fibroglandular density. FINDINGS: There are developing nodular asymmetries in the upper outer quadrant of the right breast. T he left breast is stable without evidence for malignancy. IMPRESSION: 1. Developing nodular asymmetries in the upper outer quadrant of the right breast. 2. Additional mammographic views and possible breast ultrasound are recommended. BI-RADS Category 0: Incomplete: Needs additional imaging evaluation. Reviewed, dictated and finalized at location B. IMPRESSION: 1. Developing nodular asymmetries in the upper outer quadrant of the right g[address]. 2. Additional mammographic views and possible breast ultrasound are recommended . BI-RADS Category 0: Incomplete: Needs additional imaging evaluation.
== END 2024-03-18 14:27 | disposition home or self-care (01) ==
LOC: ANHIMG 14:29
PROVIDERS: Visit Provider Nurse Practitioner Obstetrics & Gynecology
DX: Z12.31 Encounter for screening mammogram for malignant neoplasm of breast (principal); R92.8 Other abnormal and inconclusive findings on diagnostic imaging of breast
CPT/HCPCS: 77063; 77067

== ENCOUNTER 2024-05-14 13:21 | Outpatient (CLI) | payer OTHER, SELFPAY ==
--- NOTE | ~2024-05-14 | MMUS_ITS ---
EXAMINATION: MM diagnostic [place] RT w zahira, US breast RT complete HISTORY: Follow-up right breast asymmetry TECHNIQUE: Additional 3-D tomosynthesis images of the right breast were performed and synthetic 2-D i mages were generated. CAD analysis was submitted and interpreted. High resolution complete right gia st ultrasound was performed. COMPARISON: Comparison to multiple prior studies sequentially, with oldest reviewed study dated 08/2021. BREAST PARENCHYMAL COMPOSITION: Not dense: There are scattered areas of fibroglandular density. FINDINGS: MAMMOGRAPHIC FINDINGS: There are no suspicious masses, calcifications or architectural distortion in the right breast to sug gest malignancy. ULTRASOUND: Complete US of all 4 quadrants of the right breast/s and retroareolar region was reviewed. Normal het erogeneous echotexture without focal solid or cystic mass. IMPRESSION: 1. No evidence for malignancy in the right breast. 2. Routine yearly screening mammogram and regular clinical breast examination are recommended. BI-RADS Category 1: Negative Reviewed, dictated and finalized at location B. IMPRESSION: 1. No evidence for malignancy in the right breast. 2. Routine yearly screening mammogram and regular clinical breast examination a re recommended. BI-RADS Category 1: Negative
== END 2024-05-14 13:22 | disposition home or self-care (01) ==
PROVIDERS: Visit Provider Obstetrics & Gynecology
DX: N63.10 Unspecified lump in the right breast, unspecified quadrant (principal)
CPT/HCPCS: 76641; 77061; 77065; G0279